=== PATIENT | male | born 1990 | race African-American/Black ===

== ENCOUNTER 2022-03-19 17:56 | Emergency (ER) | payer SELFPAY ==
[~2022-03-19] VITALS: Ht 172.7 cm; Wt 94.0 kg
[2022-03-19] MEDS ORDERED: MORPHINE SULFATE 4 MG/ML CPJ (NOT FOR IM USE) IV ONE (20:45)
[2022-03-19] MEDS ORDERED: ACETAMINOPHEN 650MG/20.3ML UDC PO NR (21:24)
[2022-03-19] MEDS ORDERED: TETANUS, DIPHTHERIA, PERTUSSIS VAC/PF 0.5ML (>10YR OLD) IM ONE (21:30)
[2022-03-19 21:49] LABS: BASOPHILS % 0.5 % (0.0-2.0); EOSINOPHILS % 2.3 % (0.0-5.0); HEMOGLOBIN. 13.5 g/dL (14.0-18.0); LYMPHOCYTES % 24.2 % (20.0-50.0); MEAN CORPUSCULAR HEMOGLOBIN 25.1 pg (28.0-32.0); MEAN CORPUSCULAR VOLUME 74.2 fL (80.0-94.0); MEAN PLATELET VOLUME 8.4 fl (7.4-10.4); MONOCYTES % 9.9 % (2.0-8.0); NEUTROPHILS % 63.1 % (40.0-76.0); PLATELET 199 x1000/uL (130-400); RED BLOOD CELL COUNT 5.39 mill/uL (4.7-6.1); RED CELL DISTRIBUTION WIDTH 14.8 % (11.6-14.6)
[2022-03-19 21:53] LABS: CHLORIDE 109 mEq/L (98-107)
[2022-03-19] MEDS ORDERED: IOHEXOL-350 100 ML BOTTLE ONE (23:26)
[2022-03-19 23:54] VITALS: BP 142/81
[2022-03-20] MEDS ORDERED: ACET-2708 MT (00:40)
== END 2022-03-20 01:13 | disposition home or self-care (01) ==
LOC: ER 17:56
DX: S41.112A Laceration without foreign body of left upper arm, initial encounter (principal); Y04.0XXA Assault by unarmed brawl or fight, initial encounter; Y93.89 Activity, other specified; Y92.89 Other specified places as the place of occurrence of the external cause; Y99.8 Other external cause status
CPT/HCPCS: 36415; 73206; 80053; 85025; 90471; 90715; 99284; Q9967